=== PATIENT | female | born 1995 | race Caucasian/White ===

== ENCOUNTER 2017-03-01 17:48 | Emergency (ER) | payer OTHER ==
[~2017-03-01] VITALS: Ht 177.8 cm; Wt 88.1 kg
[~2017-03-01 17:48] MED LIST: HYDR-3240 PO; IBUP-1222 PO; NIFE10CA2 PO; OXYC-302 PO; PENICILLIN PO
[2017-03-01 18:12] VITALS: BP 121/71
[2017-03-01] MEDS ORDERED: BUPIVACAINE 0.25% ONE (18:28)
[2017-03-01] MEDS ORDERED: BUPIVACAINE/PF-EPI 0.25% 1:200K SQ ONE (18:30)
[2017-03-01] MEDS ORDERED: LIDOCAINE 1%, 20ML SQ ONE (18:30)
== END 2017-03-01 19:40 | disposition home or self-care (01) ==
LOC: ED 19:34
DX: K04.7 Periapical abscess without sinus (principal); K02.9 Dental caries, unspecified
CPT/HCPCS: 99283

== ENCOUNTER 2017-10-11 14:46 | Emergency (ER) | payer OTHER ==
[~2017-10-11] VITALS: Ht 177.8 cm; Wt 86.7 kg
[2017-10-11 15:00] VITALS: BP 111/68
== END 2017-10-11 15:59 | disposition home or self-care (01) ==
LOC: ED 15:30
DX: K08.89 Other specified disorders of teeth and supporting structures (principal); H92.02 Otalgia, left ear; F17.200 Nicotine dependence, unspecified, uncomplicated
CPT/HCPCS: 99283

== ENCOUNTER 2018-11-28 02:34 | Outpatient (CLI) | payer MEDICAID, OTHER ==
[~2018-11-28] VITALS: Ht 177.8 cm; Wt 95.5 kg
[~2018-11-28 02:34] MED LIST changes: -NIFE10CA2 PO; +NIFE10CA49 PO
[2018-11-28 02:44] VITALS: BP 107/59
== END 2018-11-28 04:48 | disposition home or self-care (01) ==
LOC: LDOP 02:34
PROVIDERS: ATTEND Obstetrics & Gynecology Female Pelvic Medicine and Reconstructive Surgery
DX: O62.9 Abnormality of forces of labor, unspecified (principal); Z3A.36 36 weeks gestation of pregnancy
CPT/HCPCS: 59025; 99211; G0463